=== PATIENT | male | born 1965 | race African-American/Black ===

== ENCOUNTER 2017-01-29 09:40 | Emergency (ER) | payer OTHER ==
--- NOTE | ~2017-01-29 | CR281 ---
[facility] A Service of [facility] & [facility] RADIOLOGY TEXT RESULTS PATIENT: DEVONTE PITT LOCATION: [facility] : 63 UNIT #: [id number] AGE: [address]: Lelia Zhang SEX: M ORDER DR: [id number] [facility] [address] [facility] [address] [address]. [place], [place] [address] [id number] MR#: [id number] Acc #: [id number] NAME: DEVONTE PITT : 1965 SEX: M STUDY DATE/TIME: 01/29/2017 9:55 UNIT: [facility] ROOM: STUDY DESCRIPTION: CR Wrist Min 3 View Lt Attending Physician: Lelia Zhang Pa-C Ordering Physician: Lelia Zhang Pa-C Primary Care Physician: Primary Care Physician No MEDICAL IMAGING REPORT This report is preliminary unless electronic signature is present EXAM Left wrist series dated 01/29/2017. COMPARISON STUDIES None HISTORY Pain, swelling, and redness in the left wrist since 01/28/2017. Patient has a history of gout. FINDINGS 3 views of the left wrist were obtained. No acute displaced fracture, dislocation, bony erosions, spurs or destructive bony mass. There is a 1.5 mm oval calcification/tiny bony fragment noted distal to the medial tip of the distal radius within the nearby soft tissues. It has a chronic appearance and it is an incidental finding. Dictated by... Arleen Sullivan M.D. THIS IS AN ELECTRONICALLY VERIFIED REPORT Arleen Sullivan M.D. at 01/29/2017 3:23 PM CPR/tmw TD: 01/29/2017 11:00 JOB #: [id number] MEDICAL IMAGING REPORT Page 1 of 1 COPY
[~2017-01-29 09:40] MED LIST: ASPIRIN BUFFER325 M2 PO; ASPIRIN PO; COREG6.25 M1 PO; COREG6.25 MG PO; FLEXERIL10 MG PO; LIPITOR40 MG PO; LISINOPRIL PO; NORVASC PO; NORVASC10 MG PO; PROTONIX PO; ZESTRIL40 MG PO
== END 2017-01-29 11:02 | disposition home or self-care (01) ==
LOC: CFTX 09:40
DX: M10.032 Idiopathic gout, left wrist (principal)
CPT/HCPCS: 73110; 96372; 99283; J1885

== ENCOUNTER 2017-03-15 15:28 | Inpatient (IN) | payer OTHER ==
--- NOTE | ~2017-03-15 | CT4 ---
[facility] A Service of [facility] RADIOLOGY TEXT RESULTS PATIENT: DEVONTE PITT LOCATION: [facility] : 63 UNIT #: [id number] AGE: [address]: Darrel Smith MD SEX: M ORDER DR: [id number] [place] [id number] [place], [place] [address] [id number] I MR#: [id number] Acc #: [id number] NAME: DEVONTE PITT : 1965 SEX: M STUDY DATE/TIME: 03/15/2017 19:30 UNIT: [facility] ROOM: 2 STUDY DESCRIPTION: CT Abd and Pelv Wo Cont Attending Physician: Zoe Delgado M.D. Ordering Physician: Physician Non-Staff Primary Care Physician: Generic Doctor Not In System MEDICAL IMAGING REPORT This report is preliminary unless electronic signature is present EXAM CT abdomen and pelvis without contrast INDICATIONS Dizziness and nausea beginning today. PROCEDURE Unenhanced CT abdomen and pelvis. This CT exam was performed with one or more of the following radiation dose reduction techniques: Automatic exposure control, adjustment of mA and/or kV according to patient size, and iterative reconstruction. COMPARISON None FINDINGS Included lung bases clear. Liver, spleen, kidneys, adrenal glands, pancreas, gallbladder unremarkable. Bowel loops are nondilated. Appendix is normal. PELVIS WITHOUT CONTRAST: There is a Mazariegos catheter in the bladder. Bladder wall thickening up to 1.6 cm. No pelvic mass or fluid. No aggressive appearing bone lesion. IMPRESSION 1. No acute findings in the abdomen or pelvis. 2. Bladder is decompressed by a Mazariegos catheter. Bladder wall thickening may be related to underdistention but could also reflect cystitis. Correlate with any symptoms. [facility] A Service [facility] RADIOLOGY TEXT RESULTS PATIENT: DEVONTE PITT LOCATION: [facility] : 63 UNIT #: [id number] AGE: [address]: Darrel Smith MD SEX: M ORDER DR: Dictated by... Felipe Dee M.D. THIS IS AN ELECTRONICALLY VERIFIED REPORT Felipe Dee M.D. at 03/16/2017 9:30 AM EED/viviane TD: 03/15/2017 21:38 JOB #: [id number] MEDICAL IMAGING REPORT Page 1 of 1 COPY
--- NOTE | ~2017-03-15 | DS ---
Unit #: [id number] #: [id number] Patient: DEVONTE PITT [id number] [address] [address] [id number] I MR#: [id number] NAME: DEVONTE PITT ROOM: 57 Age: 51 Sex: M Admission Date: 03/15/2017 : 1965 Discharge Date: 03/17/2017 Attending Physician: Darrel Smith M.D. Primary Care Physician: Generic Doctor Not In System DISCHARGE SUMMARY REASON FOR ADMISSION Acute kidney injury/dizziness. HISTORY OF PRESENT ILLNESS/HOSPITAL COURSE The patient is a very pleasant 51-year-old male who was admitted secondary to acute kidney injury with a creatinine of 5.3 on admission. Apparently, he had been working outside extensively and had difficulty keeping up with his fluid intake. He began having dizziness episodes and subsequently presented to the ER for further evaluation. He was subsequently admitted, placed on telemetry floor. He received IV fluids and consultation was placed to nephrology services. Dr. Mittal and associates saw and evaluated the patient. Through hospital course, it was relatively unremarkable. This morning, his creatinine currently stands at 1.2, likely representing his baseline. He did have decreased potassium as well as decreased magnesium, both have been replenished appropriately. His urinalysis initially was positive; however, final urine culture result did not reveal an acute bacterial growth. He did undergo a bilateral kidney ultrasound this hospital admission which was negative and unremarkable. He also underwent a CT abdomen and pelvis without contrast which again was unremarkable as well. At this point in time, patient is clinically stable for discharge home with appropriate outpatient followup with his primary care provider in approximately 7-10 days for a repeat BMP. FINAL DISCHARGE DIAGNOSES 1. Acute kidney injury. 2. Hypokalemia. 3. Dizziness, now resolved. 4. Coronary artery disease. 5. Hypertension. 6. Chronic systolic heart failure. 7. Hypertension. 8. Gastroesophageal reflux disease. 9. Gout. DISCHARGE MEDICATIONS 1. Coreg 6.25 mg p.o. b.i.d. 2. Norvasc 10 mg p.o. daily. 3. Hydralazine 25 mg p.o. q.8. Unit #: [id number] #: [id number] Patient: DEVONTE PITT. Protonix 40 mg p.o. daily. Please note, NAVJOT/ARB was not initiated although patient has prior history of systolic heart failure secondary to kidney injury. These medications may be resumed as an outpatient after his repeat BMP in approximately 7-10 days shows a normal creatinine level. Hydralazine has been put in its place for now. Further adjustments may be conducted as an outpatient by his primary care provider. Dictated by... Caio Ponce/antoni TD: 03/19/2017 16:35 JOB #: [id number] DISCHARGE SUMMARY Page 1 of 1 X Darrel Smith MD X DISCHARGE SUMMARY
--- NOTE | ~2017-03-15 | EKG ---
PATIENT: DEVONTE PITT UNIT #: [id number] Ventricular Rate: 94 BPM Atrial Rate: 94 BPM P-R Interval: 140 ms QRS Duration: 100 ms Q-T Interval: 386 ms QTC Calculation(Bezet): 482 ms P Wood[place]: 66 degrees Calculated R [place]: -17 degrees Calculated T [place]: -129 degrees Diagnosis Line: Normal sinus rhythm Diagnosis Line: Left ventricular hypertrophy with repolarization Diagnosis Line: abnormality Diagnosis Line: Prolonged QT Diagnosis Line: Abnormal ECG Diagnosis Line: When compared with ECG of 05-NOV-2016 04:37, Diagnosis Line: Premature supraventricular complexes are no longer Diagnosis Line: Present Diagnosis Line: Nonspecific T wave abnormality, worse in Inferior Diagnosis Line: leads Diagnosis Line: Confirmed by PJ PEREZ MD ([id number]) on Diagnosis Line: 03/16/2017 4:02:14 PM INTERPRETING MD: BRITTNY
--- NOTE | ~2017-03-15 | CO ---
Unit #: [id number] #: [id number] Patient: DEVONTE PITT [id number] [address] [place], [place] [address] [id number] I MR#: [id number] NAME: DEVONTE PITT ROOM: 572 Age: 51 Sex: M Admission Date: 03/15/2017 : 1965 Attending Physician: Darrel Smith M.D. Consultation Date: 03/16/2017 CONSULTATION REPORT HISTORY OF PRESENT ILLNESS The patient is a 51-year-old male with known history of hypertension, coronary artery disease, previously stress test in October with ejection fraction 20% and a fixed inferior wall defect without any reversible ischemia. He came in with feeling weak, tired, and fatigued. He was working outside in the sun for several hours. The CK level is less than 200. The creatinine level was noted to be 5.3. The patient also reports vomiting and diarrhea. His home medications include Zestril and ibuprofen. The patient has no previous history of renal problems. The admission blood pressure was 115/68. There is no history of cough, expectoration, chest pain, abdominal pain, hematuria, dysuria. PAST MEDICAL HISTORY Significant for hypertension, coronary artery disease, congestive heart failure with an ejection fraction 25%, GERD, and history of gout. PAST SURGICAL HISTORY Significant for inguinal hernia repair and appendectomy and low back surgery. HOME MEDICATIONS Lisinopril, ibuprofen, allopurinol, Coreg. ALLERGIES No known drug allergies. FAMILY HISTORY Significant for diabetes. No history of end-stage renal disease. SOCIAL HISTORY The patient lives at home. Does not drink or smoke. REVIEW OF SYSTEMS CVS: No chest pain. RESPIRATORY: No cough or expectoration. GI: As above. : No hematuria. No dysuria. PHYSICAL EXAMINATION GENERAL: The patient is awake, alert, and oriented. VITAL SIGNS: Blood pressure is 168/97, heart rate is 98 per minute, saturation is 98%, temperature is 97.7. HEENT: Head is atraumatic. Extraocular movements are intact. NECK: Supple. There is no elevation of the JVD. Unit #: [id number] #: [id number] Patient: DEVONTE PITT CHEST: Clear. Air entry is equal bilaterally. Breathing is vesicular in nature. HEART: S1, S2 audible. There is no S3, no S4. ABDOMEN: Soft. There is no organomegaly. No guarding. No rigidity. No rebound tenderness. EXTREMITIES: There is no edema. SKIN: Intact. SCIENTIFIC SOFTWARE ENGINEER: Motor system is intact. Cerebellar system is intact. IMPRESSION 1. Acute kidney injury likely prerenal azotemia complicated by volume depletion, working out in the sun, and concomitant Zestril and ibuprofen and vomiting, diarrhea. His renal function is improving slowly. His baseline creatinine is 1 to 1.2. We will continue the fluids through the day, but discontinue at night. Possible underlying urinary tract infection, follow urine cultures. 2. Coronary artery disease with inferior wall infarct in the past. 3. History of congestive heart failure with an ejection fraction of 20%. 4. Follow urine cultures. 5. Check renal ultrasound, quantitate proteinuria. 6. Hypokalemia, supplement and follow levels. 7. Hypertension. 8. Mild non-anion gap metabolic acidosis secondary to diarrhea and acute kidney injury. Dictated by... Luke Delgado M.D. RA/chris TD: 03/18/2017 03:30 JOB #: [id number] CONSULTATION REPORT Page 1 of 1 X Luke Delgado MD CONSULTATION REPORT
--- NOTE | ~2017-03-15 | HP ---
Unit #: [id number] #: [id number] Patient: DEVONTE PITT [id number] [address] [address] [id number] I MR#: [id number] NAME: DEVONTE PITT ROOM: 92069 Age: 51 Sex: M Admission Date: 03/15/2017 : 1965 Attending Physician: Betty Delgado M.D. Primary Care Physician: Generic Doctor Not In System HISTORY AND PHYSICAL CHIEF COMPLAINT Dizziness. HISTORY OF PRESENT ILLNESS The patient is a 51-year-old male with a history of a coronary artery disease, hypertension, chronic systolic heart failure, brought to the emergency room complaining of dizziness. The patient stated dizziness started earlier today. He was working in the heat and associated with the nausea. The patient was found to have a creatinine of 5.3 and potassium of 2.3. The patient is being admitted for the above reasons. The patient states the patient has not peed in the last 24 hours and denies any fever, chills, nausea and vomiting or any new medications. PAST MEDICAL HISTORY 1. History of a chronic systolic heart failure. 2. Coronary artery disease. 3. Hypertension. 4. Gastroesophageal reflux disease. 5. Gout. PAST SURGICAL HISTORY 1. Low back surgery. 2. Appendectomy. 3. History of a right inguinal hernia repair. HOME MEDICATIONS Lisinopril, allopurinol, Coreg. ALLERGIES None. FAMILY HISTORY Significant for diabetes. SOCIAL HISTORY The patient denies any history of smoking and no history of alcohol and no history of any illicit drug abuse. REVIEW OF SYMPTOMS Fourteen-point review of symptoms performed and only pertinent positive findings as described above, remaining are negative. PHYSICAL EXAMINATION Unit #: [id number] #: [id number] Patient: DEVONTE PITT GENERAL APPEARANCE: On examination the patient is lying on a bed not in acute distress. VITAL SIGNS: Temperature is 97.5, pulse 90, respiratory rate 17, blood pressure 115/68, sating 98% at room air. HEENT: Head atraumatic/normocephalic. Pupils equal, round and reacting to light and accommodation. Extraocular movements are intact. NECK: Supple. LUNGS: Decreased air entry at the bases. HEART: Regular rate and rhythm. ABDOMEN: Soft, positive bowel sounds. EXTREMITIES: No cyanosis. No clubbing. NEUROLOGIC: Awake, alert and oriented. No gross focal motor deficit. DIAGNOSTIC STUDIES LABORATORY DATA: WBC 6.5, hemoglobin 16.6, hematocrit 49.6, platelets 264, glucose is 99, sodium 135, potassium 2.3, chloride 96, bicarb 24, glucose 98, BUN 30, creatinine 5.3, AST 733, ALT 28, alkaline phosphatase 95, total protein is 9. ASSESSMENT 1. Acute kidney injury. 2. Hypokalemia. 3. Anuria. 4. Dizziness. PLAN Plan to admit the patient to the inpatient with the telemetry. Patient will get the gentle IV fluid with the normal saline at 100 mL per hour for a liter and will check the CT of the abdomen without contrast to rule out the obstruction with a history of anuria and will have a Renal consult and hold the nephrotoxic agents and repeat the labs again in the morning. Dictated by Caio Bansal/nivia TD: 03/15/2017 19:02 JOB #: [id number] HISTORY AND PHYSICAL Page 1 of 1 X BETTY DELGADO MD HISTORY AND PHYSICAL
--- NOTE | ~2017-03-15 | US77 ---
[facility] A Service of [facility] & [facility] RADIOLOGY TEXT RESULTS PATIENT: DEVONTE PITT LOCATION: [facility] 572-01 : 63 UNIT #: [id number] AGE: [address]: Darrel Smith MD SEX: M ORDER DR: [id number] [facility] [address] [facility]. [place], [place] [address] [id number] I MR#: [id number] #: [id number] NAME: DEVONTE PITT : 1965 SEX: M STUDY DATE/TIME: 03/16/2017 17:17 UNIT: [facility] ROOM: [facility] STUDY DESCRIPTION: US Kidney Bilateral Complete Attending Physician: Darrel Smith M.D. Referring Physician: Adonis Soolrio M.D. Ordering Physician: Ed Terrell Hall M.D. Primary Care Physician: Generic Doctor Not In System MEDICAL IMAGING REPORT This report is preliminary unless electronic signature is present EXAM Renal ultrasound bilateral, 03/16/17. HISTORY Acute renal insufficiency with dehydration beginning yesterday, abnormal renal function tests with elevated BUN of 30, elevated creatinine of 2.3. Abnormally low GFR of 36.2 today. FINDINGS The right kidney measures 13 cm while the left kidney measures 11.9 cm in longitudinal dimensions. There is no evidence of hydronephrosis or nephrolithiasis. No cystic or solid mass lesions were seen on either kidney, and there is normal renal cortical echogenicity. Images of the bladder are normal. IMPRESSION 1. Negative renal ultrasound. 2. Images of the bladder are normal. Dictated by... Tony Hargrove M.D. THIS IS AN ELECTRONICALLY VERIFIED REPORT Tony Hargrove M.D. at 03/19/2017 8:26 AM GUERLINE/louann TD: 03/16/2017 22:45 JOB #: [id number] MEDICAL IMAGING REPORT Page 1 of 1 COPY
[2017-03-15 16:21] LABS: BASOPHIL# 0.1 X10e3 (0-0.3); BASOPHIL% 0.9 % (0-2.5); EOSINOPHIL# 0.3 X10e3 (0-0.7); EOSINOPHIL% 4.7 % (0.0-7.0); HEMATOCRIT 49.6 % (38.0-50.0); HEMOGLOBIN 16.6 gm/dL (13.0-16.0); LYMPHOCYTE# 1.5 X10e3 (1.0-3.5); MEAN CELL VOLUME 91.7 FL (83-96); MEAN CORPUSCULAR HEMOGLOBIN 30.8 PG (28-34); MEAN CORPUSCULAR HGB CONC 33.5 g/dL (30-36); MEAN PLATELET VOLUME 7.7 FL (6.5-11.5); MONOCYTE# 0.7 X10e3 (0-1.0); MONOCYTE% 10.6 % (3.0-12.0); NEUTROPHIL# 3.9 X10e3 (1.5-7.1); NEUTROPHIL% 60.8 % (40-75); PLATELET COUNT 264 X10e3 (140-420); RED BLOOD COUNT 5.41 X10e (3.90-5.60); RED CELL DISTRIBUTION WIDTH 14.9 % (11.0-15.5); WHITE BLOOD COUNT 6.5 X10e3 (4.0-10.5)
[2017-03-15 16:22] LABS: DIFF IND NO
[2017-03-15 16:46] LABS: ALBUMIN SERUM 4.2 g/dL (3.5-5.0); BILIRUBIN, DIRECT 0.2 mg/dL (0.0-0.2); BILIRUBIN,INDIRECT 0.6 mg/dL (0.0-0.9); BILIRUBIN,TOTAL 0.8 mg/dL (0.2-2.0); BUN/CREATININE RATIO 5.66; CALCIUM SERUM 8.5 mg/dL (8.4-10.2); CREATININE SERUM 5.3 mg/dL (0.6-1.4); GLOM FILT RATE Estimated 13.2 mL/min (>60)
[2017-03-15 16:48] LABS: POTASSIUM 2.3 mmol/L (3.5-5.1)
[2017-03-15 19:20] LABS: URINE SOURCE CLEAN CATCH
[2017-03-15 19:37] LABS: URINE APPEARANCE CLOUDY; URINE BLOOD 1+ (NEG); URINE COLOR DK YELLOW; URINE GLUCOSE NEG (NEG); URINE KETONE TRACE (NEG); URINE LEUKOCYTE ESTERASE TRACE (NEG); URINE NITRATE NEG (NEG); URINE PROTEIN 2+ (NEG); URINE SPECIFIC GRAVITY 1.023 (1.003-1.035)
[2017-03-15 19:41] LABS: CULTURE INDICATED? YES; URINE SQUAMOUS EPITHELIAL CELL FEW /[HPF]
[2017-03-15 19:53] LABS: URINE BILIRUBIN NEG (NEG)
[2017-03-15 19:56] LABS: U HYALINE CASTS AUWI 25-50 /[LPF]
[2017-03-15 19:57] LABS: URINE BACTERIA AUWI 2+ (NEGATIVE); URINE MUCUS PRESENT
[2017-03-15] MEDS ORDERED: ZESTRIL40 MG (23:14)
[2017-03-15] MEDS ORDERED: COREG6.25 M1 PO (23:15)
[2017-03-15] MEDS ORDERED: PANTOPRAZOLE SO40 MG PO (23:16)
[2017-03-15] MEDS ORDERED: NORVASC10 MG PO (23:17)
[2017-03-16 05:04] LABS: BASOPHIL# 0.1 X10e3 (0-0.3); BASOPHIL% 0.7 % (0-2.5); EOSINOPHIL# 0.4 X10e3 (0-0.7); EOSINOPHIL% 5.7 % (0.0-7.0); HEMATOCRIT 43.2 % (38.0-50.0); LYMPHOCYTE# 2.5 X10e3 (1.0-3.5); LYMPHOCYTE% 36.5 % (17.0-45.0); MEAN CELL VOLUME 92.8 FL (83-96); MEAN CORPUSCULAR HEMOGLOBIN 31.1 PG (28-34); MEAN CORPUSCULAR HGB CONC 33.5 g/dL (30-36); MEAN PLATELET VOLUME 7.9 FL (6.5-11.5); MONOCYTE# 0.9 X10e3 (0-1.0); MONOCYTE% 12.6 % (3.0-12.0); NEUTROPHIL% 44.5 % (40-75); PLATELET COUNT 218 X10e3 (140-420); RED BLOOD COUNT 4.65 X10e (3.90-5.60); WHITE BLOOD COUNT 6.8 X10e3 (4.0-10.5)
[2017-03-16 05:14] LABS: DIFF IND NO; HEMOGLOBIN 14.4 gm/dL (13.0-16.0)
[2017-03-16 06:19] LABS: CALCIUM SERUM 8.3 mg/dL (8.4-10.2)
[2017-03-16 06:25] LABS: BUN/CREATININE RATIO 13.04; CREATININE SERUM 2.3 mg/dL (0.6-1.4); GLOM FILT RATE Estimated 36.2 mL/min (>60); POTASSIUM 2.6 mmol/L (3.5-5.1)
[2017-03-16 18:04] LABS: URINE APPEARANCE CLEAR; URINE BILIRUBIN NEG (NEG); URINE BLOOD 2+ (NEG); URINE COLOR YELLOW; URINE GLUCOSE NEG (NEG); URINE KETONE NEG (NEG); URINE LEUKOCYTE ESTERASE TRACE (NEG); URINE NITRATE NEG (NEG); URINE PH 5.5 (5-8); URINE PROTEIN NEG (NEG); URINE SPECIFIC GRAVITY 1.014 (1.003-1.035)
[2017-03-16 18:11] LABS: URBCS1 AUWI 25-50 /[HPF] (0-2); URINE BACTERIA AUWI 1+ (NEGATIVE); URINE SQUAMOUS EPITHELIAL CELL NONE SEEN /[HPF]
[2017-03-16 18:12] LABS: CREATININE,RANDOM URINE 61 mg/dL; SODIUM URINE RANDOM 155 mmol/L; TOTAL PROTEIN,RANDOM URINE 16 mg/dl (<10)
[2017-03-17 06:32] LABS: BUN/CREATININE RATIO 12.5; CALCIUM SERUM 8.4 mg/dL (8.4-10.2); CREATININE SERUM 1.2 mg/dL (0.6-1.4); GLOM FILT RATE Estimated 79.6 mL/min (>60); MAGNESIUM 1.5 mg/dL (1.6-3.0); POTASSIUM 3.3 mmol/L (3.5-5.1)
[2017-03-17] MEDS ORDERED: HYDRALAZINE HCL25 MG PO (12:52)
== END 2017-03-17 13:52 | disposition home or self-care (01) | DRG 683 ==
LOC: CED 15:28 → CEDOF 18:00 → C5C 18:05 → CEDOF 18:05 → CED 18:05 → CEDOF 20:42 → C5C 20:42
PROVIDERS: Emergency Medicine; Family Medicine; Internal Medicine; Internal Medicine Nephrology
DX: N17.9 Acute kidney failure, unspecified (principal); I50.22 Chronic systolic (congestive) heart failure; I11.0 Hypertensive heart disease with heart failure; E87.2 Acidosis; E87.6 Hypokalemia; E86.0 Dehydration; R42 Dizziness and giddiness; I25.10 Atherosclerotic heart disease of native coronary artery without angina pectoris; K21.9 Gastro-esophageal reflux disease without esophagitis; M10.9 Gout, unspecified; Z83.3 Family history of diabetes mellitus; R19.7 Diarrhea, unspecified; Z90.49 Acquired absence of other specified parts of digestive tract
CPT/HCPCS: 36415; 74176; 76770; 80048; 80076; 81003; 82550; 82570; 82947; 83735; 84132; 84156; 84300; 85025; 87086; 89190; 93005; 94760; 96360; 99285; J3475

== ENCOUNTER 2017-04-17 01:23 | Inpatient (IN) | payer OTHER ==
[~2017-04-17] VITALS: Ht 185.4 cm; Wt 81.2 kg
--- NOTE | ~2017-04-17 | CO ---
Unit #: [id number] #: [id number] Patient: DEVONTE PITT [id number] [facility] [address] [facility]. [place], [place] [address] [id number] I MR#: [id number] NAME: DEVONTE PITT ROOM: 304 Age: 51 Sex: M Admission Date: 04/17/2017 : 1965 Attending Physician: Vipin Taylor M.D. Primary Care Physician: Andrei Pinto M.D. Consultation Date: 04/18/2017 CONSULTATION REPORT REASON FOR CONSULTATION Elevated troponin. HISTORY OF PRESENT ILLNESS The patient is a 51-year-old -[place] male who is known o [facility] and has seen Dr. Chen here at [facility]. In October 2016, the patient had a cardiac catheterization which showed 60% stenosis in the mid LAD, 60% stenosis in the mid left circumflex and RCA small RV branch at the ostium 90% stenosis. This was not suitable for PCI and it was decided to treat the patient medically. Also at that time, in October 2016, the patient had a 2D echocardiogram which showed that he has an EF of 20% to 25%, severe hypokinesis of the left ventricle, mild to moderate LVH, pseudonormalization with possible small protruding thrombus attached at the LV apex. Additional past medical history includes chronic systolic and diastolic CHF, hypertension, hyperlipidemia, GERD and gout. The patient presented to the emergency department on April 17, 2017. The patient states he was in his usual state of health and that day had eaten [place] and then gone to the horse racing track in [place]. As he was leaving the track, he started to feel slightly nauseated. The patient reports that once he got home he just "felt sick" and laid down. The patient woke up with nausea, vomiting, and bilateral arm heaviness and weakness. He denied any chest pain or shortness of air. He states he did have some dizziness and mild diaphoresis. He states that he was unable to move his arms. In the emergency department, MRI of the cervical spine was completed but was limited by motion artifact. Urinalysis had findings concerning for urinary tract infection. He was treated with 1 g of IV Rocephin and magnesium and potassium. The patient's urine drug screen was found to be positive for marijuana and cocaine. When I asked the patient about this he adamantly denied using any illicit drugs. The patient's EKG showed sinus tachycardia with a rate of 114 beats/minute and his troponin was found to be 0.05. Cardiology has been consulted for troponin of 0.05 x2 and now 0.06. PAST MEDICAL HISTORY 1. Cardiac catheterization October 2016, showed left main normal. Mid LAD 60% stenosis. Mid left circumflex 60% stenosis and RCA small RV branch at the ostium 90% stenosis. RPDA diffuse 90% stenosis, not suitable for PCI. Will treat medically. 2. 2D echocardiogram from October 16, 2016. EF 20% to 25%, severe hypokinesis of the left ventricle. Mild to moderate LVH. Unit #: [id number] #: [id number] Patient: DEVONTE PITT Pseudonormalization and possible small protruding thrombus attached to the left apex. 3. Hypertension. 4. Hyperlipidemia. 5. GERD. 6. Gout. 7. Chronic systolic and diastolic CHF. 8. Positive marijuana and cocaine use. PAST SURGICAL HISTORY 1. Cardiac catheterization as detailed above. 2. Back surgery. 3. Appendectomy. ALLERGIES No known allergies. HOME MEDICATIONS 1. Coreg 6.25 mg p.o. b.i.d. 2. Protonix 40 mg p.o. daily. 3. Norvasc 10 mg p.o. daily. 4. Hydralazine 25 mg p.o. three times daily. SOCIAL HISTORY The patient denies any tobacco or alcohol use. The patient denies using marijuana and cocaine; however, his urinalysis was positive for this. FAMILY HISTORY The patient endorses that his mother passed of a myocardial infarction at the age of 56 and his brother recently at the age of 54 from a myocardial infarction. Please note that per the H and P, patient's mother had congestive heart failure and hypertension. REVIEW OF SYSTEMS A ten point review of systems has been done and is considered otherwise negative unless indicated in the HPI. PHYSICAL EXAMINATION GENERAL: The patient is awake, alert, in no acute distress. VITAL SIGNS: Temperature 98.1, heart rate 113, respirations 24, blood pressure 139/98. He is oxygenating 97%. HEENT: Head is atraumatic, normocephalic. Pupils are equal, round and reactive. Extraocular movements are intact. No drainage from ears or nares. Normal carotid upstrokes. No thyromegaly or lymphadenopathy is appreciated. CHEST: Lungs are clear to auscultation bilaterally. No wheezes, rales or rhonchi. CARDIOVASCULAR: S1, S2. Regular rate and rhythm. No murmurs, rubs or gallops appreciated. ABDOMEN: Soft, nontender, nondistended. Bowel sounds are positive in all four quadrants. SKIN: Appears to be warm, dry and intact without any unusual rashes or lesions. EXTREMITIES: No clubbing, edema or cyanosis. NEUROLOGIC: The patient is alert and oriented x4. He is pleasant and conversant. No focal defects. Cranial nerves II-XII appear to be intact. DIAGNOSTIC STUDIES Unit #: [id number] #: [id number] Patient: DEVONTE PITT LABORATORY: Troponin 0.05 x2, now 0.06. White blood cells 9.6, hemoglobin 14.7, hematocrit 44.2, platelets 224. Sodium 135, potassium 3.6, chloride 102, CO2 23, BUN 9, creatinine 1. Urine drug screen is positive for cocaine and marijuana. Urinalysis is positive with culture pending. Blood cultures are pending. CARDIOVASCULAR: EKG shows sinus tachycardia with a rate of 114 beats/minute. IMAGING: CT scan of the chest shows no active disease, mild cardiomegaly. MRI of the cervical spine was limited by motion artifact. Degenerative changes at multiple levels of the cervical spine, particularly C3-4, C5-6 and C6-7 with likely canal stenosis and cord displacement, particularly at C3-[address] scan of the head shows remote appearing lacunar infarct, left caudate head which is new since prior study of March of 2011. Extensive mucosal thickening throughout the paranasal sinuses. ASSESSMENT 1. Indeterminate troponin. 2. Bilateral arm weakness, pain, myalgias. 3. Coronary artery disease, status post cath in 2016 with three vessel disease. 4. Ejection fraction of 20% to 25% in October 2016. 5. Chronic systolic and diastolic congestive heart failure. 6. Urinary tract infection with culture pending. 7. Likely chronic lacunar infarct. 8. Positive cocaine and marijuana use. PLAN At this time, we will check a lipid panel, TSH, BMP and mag in the morning. Will ask nursing to place 2D echocardiogram report on chart from October 2016. The patient will be started on Entresto 24/26 mg p.o. b.i.d. and hydralazine will be discontinued. Norvasc will be decreased to 5 mg p.o. daily. The patient will also be started on Lasix 20 mg p.o. daily and spironolactone 12.5 mg p.o. daily. Parameters for the patient's Coreg will be added and will be held if his heart rate is less than 60 or systolic blood pressure is less than 100. Repeat EKG will be done in the a.m. and blood cultures x2 15 minutes apart will be obtained. Further recommendations will be per Dr. Lynn. Please see the chart for that. Dictated by... Debbie Diamond A.P.R.N. for Dar Lynn M.D. LA/bel TD: 04/19/2017 06:47 JOB #: [id number] Unit #: [id number] #: [id number] Patient: DEVONTE PITT CONSULTATION REPORT Page 1 of 1 X Debbie Diamond LEAD RIDER X CONSULTATION REPORT
--- NOTE | ~2017-04-17 | CR72 ---
[facility] A Service of [facility] & [facility] RADIOLOGY TEXT RESULTS PATIENT: DEVONTE PITT LOCATION: [facility] 304-01 : 63 UNIT #: [id number] AGE: [address]: Elva Johns MD SEX: M ORDER DR: [id number] [facility] [address] [facility]. [place], [place] [address] [id number] E MR#: [id number] Acc #: [id number] NAME: DEVONTE PITT : 1965 SEX: M STUDY DATE/TIME: 04/17/2017 4:05 UNIT: [facility] ROOM: STUDY DESCRIPTION: CR Chest Single View Portable Attending Physician: Louie Nieves M.D. Ordering Physician: Terry Mukherjee D.O. Primary Care Physician: Andrei Pinto M.D. MEDICAL IMAGING REPORT This report is preliminary unless electronic signature is present EXAM Portable chest INDICATIONS Shortness of air tonight. PROCEDURE Frontal view chest. COMPARISON STUDIES 11/05/2016 FINDINGS Mild cardiomegaly. No dense consolidation, pleural fluid or pneumothorax. IMPRESSION No active process. Mild cardiomegaly Dictated by... Felipe Dee M.D. THIS IS AN ELECTRONICALLY VERIFIED REPORT Felipe Dee M.D. at 04/17/2017 9:51 PM KAREN/suze TD: 04/17/2017 13:47 JOB #: [id number] MEDICAL IMAGING REPORT Page 1 of 1 COPY
--- NOTE | ~2017-04-17 | MR122 ---
[facility] A Service of [facility] & [facility] RADIOLOGY TEXT RESULTS PATIENT: DEVONTE PITT LOCATION: [facility] 304-01 : 63 UNIT #: [id number] AGE: [address]: PRANEETH JACKSON V SEX: M ORDER DR: [id number] [facility] [address] [place], [place] [address] [id number] I MR#: [id number] Acc #: [id number] NAME: DEVONTE PITT : 1965 SEX: M STUDY DATE/TIME: 04/19/2017 22:17 UNIT: C3A PCU ROOM: 304 STUDY DESCRIPTION: MR MRA Head Wo Contrast Attending Physician: Praneeth Jackson M.D. Ordering Physician: Mark Jennings M.D. Primary Care Physician: Andrei Pinto M.D. MRI CENTER REPORT This report is preliminary unless electronic signature is present. EXAM MR angiogram [place] HISTORY 51-year-old male with history of alcohol use, drug abuse, and hypertension presents unable to move arms and shoulders, upper arm weakness for 4 days. Tingling and numbness in both hands for several months. No cancer history. COMMENT MR angiography performed [place] vasculature. The comparison study is from 04/19/2017. There is an attenuated appearance to the right posterior cerebral artery distribution when compared to the left. This is of uncertain significance clinically since there is no infarct in this distribution on the diffusion series. There are relatively large bilateral posterior communicators which supply origin to the posterior cerebral artery distribution. The basilar is of relatively smaller caliber supplied by a right vertebral artery. The left vertebral artery largely terminates in a PICA vessel. Patient has an anterior dominant circulation. Mild fullness of the tip of the basilar to about 3 mm essentially a small saccular aneurysm from which the vessels arise. This should be followed in about 1 year with a followup MR angiogram. No other possible intracranial vascular cutoff is seen. No significant sized anterior communicator is identified. The vessels are irregular in general and this could be a manifestation of intracranial atherosclerotic disease. The patient does have a history of cocaine use and its possible this is related to the patient's drug abuse history. Certainly a combination of etiologies could be present. No high-grade central stenosis is appreciated. Preliminary voice clip provide overnight by Dr. Dee. IMPRESSION 1. There is a relatively diminished size to the right posterior cerebral STS. [facility] A Service of [facility] & [facility] RADIOLOGY TEXT RESULTS PATIENT: DEVONTE PITT LOCATION: [facility] 304-01 : 61 UNIT #: [id number] AGE: [address]: PRANEETH JACKSON V SEX: M ORDER DR: artery distribution. This is of uncertain further clinical significance since there is no evidence for ischemic insult in this distribution. Otherwise there is no suspicion for a intracranial vascular cutoff. 2. Anterior dominant circulation with origin to the bilateral posterior cerebral artery distributions. 3. Irregular appearance to the vasculature in general. This could be a manifestation of intracranial atherosclerotic disease. The patient also provides a history of cocaine use and it could be related to drug abuse as well. There is no high-grade central stenosis appreciated. 4. There is a 3 mm focus of essentially saccular dilatation of the tip of the basilar from which the vessels arise. This is most consistent with a small aneurysm. I would recommend a followup MR angiogram in a year to reassess. STAT * RESULT Dictated by... Radha Serrano M.D. THIS IS AN ELECTRONICALLY VERIFIED REPORT Radha Serrano M.D. at 04/20/2017 9:31 AM GRICEL/abdulaziz TD: 04/20/2017 07:45 JOB #: [id number] MRI CENTER REPORT Page 1 of 1 COPY
--- NOTE | ~2017-04-17 | EKG ---
PATIENT: DEVONTE PITT UNIT #: [id number] Ventricular Rate: 91 BPM Atrial Rate: 91 BPM P-R Interval: 156 ms QRS Duration: 96 ms Q-T Interval: 444 ms QTC Calculation(Bezet): 546 ms P Min[place]: 68 degrees Calculated R [place]: -15 degrees Calculated T [place]: 10 degrees Diagnosis Line: Normal sinus rhythm Diagnosis Line: Left ventricular hypertrophy with repolarization Diagnosis Line: abnormality Diagnosis Line: Prolonged QT Diagnosis Line: Abnormal ECG Diagnosis Line: When compared with ECG of 18-APR-2017 15:51, Diagnosis Line: (unconfirmed) Diagnosis Line: Nonspecific T wave abnormality now evident in Diagnosis Line: Lateral leads Diagnosis Line: Confirmed by RISSA IBANEZ MD ([id number]) on 04/19/2017 Diagnosis Line: 7:58:50 PM INTERPRETING MD: SHAMAR POLO
--- NOTE | ~2017-04-17 | DS ---
Unit #: [id number] #: [id number] Patient: DEVONTE PITT [id number] [address] [address] [id number] I MR#: [id number] NAME: DEVONTE PITT ROOM: 304 Age: 51 Sex: M Admission Date: 04/17/2017 : 1965 Discharge Date: 04/20/2017 Attending Physician: Vipin Taylor Primary Care Physician: Andrei Pinto M.D. DISCHARGE SUMMARY PERTINENT HISTORY AND CLINICAL COURSE The patient is a 51-year-old man with a history significant for coronary artery disease, congestive heart failure, cardiomyopathy, gout, and GERD who presented to the hospital with symptoms of pain and weakness over both of his upper extremities along with swelling over both of his shoulders. During this admission, the patient had an echocardiogram that demonstrated an ejection fraction of 20 to 30%. Cardiology was consulted. The patient was started on Entresto as well as Lasix and spironolactone. Also during his admission, the patient was noted to have white cells in his urine. The patient was treated with antibiotic Rocephin. Also during his admission, the patient had a CAT scan of his brain that demonstrated an old small left caudate head lacunar infarct with non-sequelae of chronic small vessel disease. This patient was started on Lipitor 40 mg daily and Neurology was consulted. Also during his admission, the patient was noted to have an elevated ESR. Dictated by... Vipin Taylor for Caio Faria TD: 04/23/2017 02:10 JOB #: [id number] DISCHARGE SUMMARY Page 1 of 1 X X DISCHARGE SUMMARY
--- NOTE | ~2017-04-17 | MR134 ---
[facility] A Service of [facility] & [facility] RADIOLOGY TEXT RESULTS PATIENT: DEVONTE PITT LOCATION: [facility] 304-01 : 61 UNIT #: [id number] AGE: [address]: PRANEETH JACKSON V SEX: M ORDER DR: [id number] [facility] [address] [place], [place] [address] [id number] I MR#: [id number] Acc #: [id number] NAME: DEVONTE PITT : 1965 SEX: M STUDY DATE/TIME: 04/19/2017 22:17 UNIT: C3A PCU ROOM: 304 STUDY DESCRIPTION: MR MRA Neck Wo Contrast Attending Physician: Praneeth Jackson M.D. Ordering Physician: Mark Jennings M.D. Primary Care Physician: Andrei Pinto M.D. MRI CENTER REPORT This report is preliminary unless electronic signature is present. EXAM MR angiogram neck without HISTORY Weakness and pain. Four days of bilateral upper arm weakness. 51-year-old patient who has a history of hypertension, drug abuse and alcohol use. Preliminary wet reading provided overnight by Dr. Dee. COMMENT MR angiography performed neck vessels without contrast centered at the level of the carotid bifurcations. Some mild motion limitation noted. By NASCET criteria, no hemodynamically-significant narrowing is seen at the left carotid bifurcation. By NASCET criteria, no hemodynamically-significant narrowing is seen at the right carotid bifurcation. There is a dominant right vertebral artery. It is grossly patent but I cannot evaluate for areas of stenosis because of the motion. The left vertebral artery is not well seen. It could be hypoplastic or diseased or have essentially very slow flow or occlusion. Appearance is concerning for occlusion. There is a tiny vessel intracranially supplying the PICA which could be reconstituted from the neck collaterals. IMPRESSION By NASCET criteria, there is no hemodynamically-significant narrowing at either carotid bifurcation. The right vertebral artery is patent and supplies the basilar. I suspect the left vertebral artery is either occluded or has very slow flow. It is simply not seen in the neck. There is a tiny distal left vertebral artery which appears to supply the PICA intracranially and I would suspect this is reconstituted from neck collaterals. [facility] A Service of [facility] & [facility] RADIOLOGY TEXT RESULTS PATIENT: DEVONTE PITT LOCATION: C3[facility] 304-01 : 61 UNIT #: [id number] AGE: [address]: PRANEETH JACKSON V SEX: M ORDER DR: STAT * RESULT Dictated by... Radha Serrano M.D. THIS IS AN ELECTRONICALLY VERIFIED REPORT Radha Serrano M.D. at 04/20/2017 9:31 AM Mehran TD: 04/20/2017 07:52 JOB #: [id number] MRI CENTER REPORT Page 1 of 1 COPY
--- NOTE | ~2017-04-17 | EKG ---
PATIENT: DEVONTE PITT UNIT #: [id number] Ventricular Rate: 100 BPM Atrial Rate: 100 BPM P-R Interval: 142 ms QRS Duration: 102 ms Q-T Interval: 398 ms QTC Calculation(Bezet): 513 ms P [place]: 68 degrees Calculated R [place]: -21 degrees Calculated T Jen[place]: 0 degrees Diagnosis Line: Normal sinus rhythm Diagnosis Line: Voltage criteria for left ventricular hypertrophy Diagnosis Line: Prolonged QT Diagnosis Line: Abnormal ECG Diagnosis Line: When compared with ECG of 17-APR-2017 01:31, Diagnosis Line: ST no longer depressed in Inferior leads Diagnosis Line: Nonspecific T wave abnormality no longer evident Diagnosis Line: in Lateral leads Diagnosis Line: Confirmed by PAULINE HARPER MD ([id number]) on Diagnosis Line: 04/20/2017 7:29:10 AM INTERPRETING MD: LEROY POLO
--- NOTE | ~2017-04-17 | DS ---
Unit #: [id number] #: [id number] Patient: DEVONTE PITT [id number] [address] [place], [place] [address] [id number] I MR#: [id number] NAME: DEVONTE PITT ROOM: 304 Age: 51 Sex: M Admission Date: 04/17/2017 : 1965 Discharge Date: 04/20/2017 Attending Physician: Vipin Taylor Primary Care Physician: Andrei Pinto M.D. DISCHARGE SUMMARY ADDENDUM PERTINENT HISTORY AND HOSPITAL COURSE The patient is a 51-year-old man with past medical history significant for coronary artery disease, congestive heart failure, hypertension, gout, and GERD. He presented to the emergency room with symptoms of weakness, swelling, and pain over both of his bilateral upper extremities, more over bilateral shoulders, right greater than left. During his admission, the patient was evaluated by Neurology for his weakness. The patient has a CAT scan of his head demonstrated an old remote left caudate lacunar infarct with chronic small vessel ischemic changes. During his admission, the patient was started on statin and continued on aspirin. Also during his admission, the patient had an echocardiogram that demonstrated an ejection fraction of 20% to 30%. The patient was evaluated by Cardiology consultation. He was started on Entresto, and Lasix and spironolactone were also added to his medications. Also during his admission, the patient demonstrated white cells in his urine. He was treated for urinary tract infection with Rocephin. During his admission, his ESR and CRP were noted to be elevated. He had an MRI of his right shoulder that demonstrated mild to moderate supraspinatus and infraspinatus tendinopathy, no evidence of rotator cuff tear. The patient was treated with glucocorticoids for tendonitis and myositis. Following which, his bilateral shoulder pain and swelling resolved. The patient is to be discharged home today. His vitals were stable. He is breathing comfortably. His shoulder swelling and tenderness have resolved. His range of motion of his upper extremities have improved. DISCHARGE MEDICATIONS Coreg 6.25 mg p.o. q.12 hourly, amlodipine 5 mg p.o. daily, furosemide 40 mg p.o. daily, Lipitor 40 mg p.o. at bedtime, Protonix 40 mg daily, aspirin 325 mg p.o. daily, spironolactone 25 mg p.o. daily, prednisone 20 mg p.o. daily for 5 days, magnesium oxide 400 mg p.o. b.i.d. for 3 days, K-Dur 10 mEq p.o. daily for 3 days. 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 DISCHARGE INSTRUCTIONS Follow up with primary care physician. Follow up with Cardiology, . Unit #: [id number] #: [id number] Patient: DUNCAN PITTKAREN Lynn. Lab test ordered as outpatient, BMP and mag. Lab test fax to Dr. Lynn' office in 1 week. Dictated by... Vipin More for Aristeo Diamond M.D. AM/chris TD: 04/23/2017 02:30 JOB #: [id number] DISCHARGE SUMMARY Page 1 of 1 X X DISCHARGE SUMMARY
--- NOTE | ~2017-04-17 | MR31 ---
[facility] A Service of [facility] & [facility] RADIOLOGY TEXT RESULTS PATIENT: DEVONTE PITT LOCATION: C3A 304-01 : 63 UNIT #: [id number] AGE: [address]: PRANEETH JACKSON V SEX: M ORDER DR: [id number] [facility] [address] [place], [place] [address] [id number] I MR#: [id number] Acc #: [id number] NAME: DEVONTE PITT : 1965 SEX: M STUDY DATE/TIME: 04/19/2017 22:17 UNIT: C3A [facility] ROOM: 304 STUDY DESCRIPTION: MR Cervical WWo Contrast Attending Physician: Praneeth Jackson M.D. Ordering Physician: Mark Jennings M.D. Primary Care Physician: Andrei Pinto M.D. MRI CENTER REPORT This report is preliminary unless electronic signature is present. EXAM Cervical spine MRI with and without. HISTORY Four days of bilateral upper arm weakness. Tingling and numbness in both hands for several months. Unable to raise right shoulder sideways for 4 days. No known injury. No history of surgery or cancer of spine. Patient has a history of drug abuse. FINDINGS MRI of the cervical spine was performed prior to and following intravenous administration of 15 mL of MultiHance. There is no prior study of the cervical spine. There is preliminary wet reading provided by Dr. Dee. Study is unfortunately motion limited. Sagittal alignment is normal. Intervertebral discs are desiccated in general with multiple level loss of intervertebral disc height. This is pdjq-ti-htknuykw and most apparent at C3-4, C5-6, C6-7. Endplate spondylosis also most apparent at C3-4 and, to a lesser extent, 5-6 and 6-7 levels. The cervical cord is normal in size. There is a tiny linear focus of high-signal intensity seen on sagittal T2 and STIR imaging at the level of C4-5. Given the amount of motion, it is not reproduced on the axial imaging. It is probably real and this could be a tiny prominent central canal (essentially a normal variant). It is not associated with mass effect or enhancement and no further assessment is needed of this lesion at this time. It is conceivable it is a tiny manifestation of prior cord contusion. Otherwise cord signal intensity is essentially within normal limits allowing for the motion. No Chiari-I malformation or pathologic cord enhancement. At C2-3, there is no significant abnormality. [facility] A Service of [facility] RADIOLOGY TEXT RESULTS PATIENT: DEVONTE PITT LOCATION: C3A PC 304-01 : 61 UNIT #: [id number] AGE: [address]: PRANEETH JACKSON V SEX: M ORDER DR: At C3-4, there is mild bilateral facet degenerative change concentric moderate disc osteophyte complex with uncovertebral osteophyte formation. There is a broad posterior protrusion/extrusion, which extends above and below the level of disc, but remains contiguous with disc, more prominent centrally. It results in mild cord flattening and canal stenosis, but there is still CSF posterior to the cord and this does not result in cord signal abnormality. Probably fairly severe left and more moderate right-sided foraminal narrowing allowing for motion. At C4-5, there is mild concentric disc bulge. Mild right sided facet degenerative change. Mild effacement of the anterior thecal sac and probably not significant foraminal impingement. At C5-6, there is mild concentric disc osteophyte complex with probably mild right-side facet degenerative change and mnjw-ps-cnkrujxg right and moderate left-side foraminal narrowing. There is some effacement of the anterior thecal sac, but no significant canal stenosis. At C6-7, concentric disc osteophyte complex with uncovertebral osteophyte formation bilaterally and mild right-side facet degenerative change. There is more focal disc protrusion/extrusion broad-based posteriorly, but particularly into the right 6-7 foramen such that there is severe right sided foraminal narrowing. There is also a fairly severe left-sided foraminal narrowing. There is effacement of the anterior thecal sac, but no significant canal stenosis. At C7-T1, there is moderate facet degenerative change worse on the right. There is no canal stenosis. There is no significant foraminal impingement. IMPRESSION 1. Motion limited study. 2. There is mild canal stenosis at the level of C3-4. This is not associated with cord signal abnormality at this level. There is a tiny linear focus of signal abnormality in the cord at the level of C4-5, which could simply be a tiny prominent central canal which is of no further significance clinically. It is possible this is a tiny remote manifestation of a cord contusion. It is not associated with mass effect or enhancement. Otherwise, cord signal intensity is normal. 3. There is multilevel foraminal impingement some of which is severe. Most severe impingement appears to be on the right side at C6-7 where focal disc material fills the foramen. Please refer to the pfhoz-pj-pyner description of foraminal impingement and correlate with radicular distribution. STAT * RESULT 1. [facility] A Service of [facility] RADIOLOGY TEXT RESULTS PATIENT: DEVONTE PITT LOCATION: A 304-01 : 63 UNIT #: [id number] AGE: [address]: PRANEETH JACKSON V SEX: M ORDER DR: Dictated by... Radha Serrano M.D. THIS IS AN ELECTRONICALLY VERIFIED REPORT Radha Serrano M.D. at 04/20/2017 9:33 AM GRICEL/sunita TD: 04/20/2017 08:01 JOB #: [id number] MRI CENTER REPORT Page 1 of 1 COPY
--- NOTE | ~2017-04-17 | MR165 ---
[facility] A Service of [facility] RADIOLOGY TEXT RESULTS PATIENT: DEVONTE PITT LOCATION: [facility] 304-01 : 63 UNIT #: [id number] AGE: [address]: PRANEETH JACKSON V SEX: M ORDER DR: [id number] [place] [id number] [facility]. [place], [place] [address] [id number] I MR#: [id number] Acc #: [id number] NAME: DEVONTE PITT : 1965 SEX: M STUDY DATE/TIME: 04/19/2017 21:51 UNIT: [address] ROOM: [facility] STUDY DESCRIPTION: MR Shoulder Wo Contrast Rt Attending Physician: Praneeth Jackson M.D. Ordering Physician: Physician Non-Staff Primary Care Physician: Andrei Pinto M.D. MRI CENTER REPORT This report is preliminary unless electronic signature is present. EXAM Right shoulder MRI without contrast 04/19/2017 HISTORY 51-year-old male with right shoulder pain and limited range of motion for 4 days. No specific injury. COMPARISON Right shoulder x-rays 04/19/2017 TECHNIQUE Routine unenhanced multiplanar, multisequence high field MR imaging of the right shoulder was performed. FINDINGS There is adjp-tj-aplvgzsj supraspinatus and infraspinatus tendinopathy. No evidence of tear. Teres minor and subscapularis tendons are intact. Long biceps tendon is intact and well positioned in the bicipital groove. Mild superior labral degeneration. No evidence of a displaced labral tear. Glenoid articular cartilage is intact. There is sls-zs-clkadvqj grade chondromalacia in inferior humeral head. No significant glenohumeral effusion. Mild degenerative change of the acromioclavicular joint. No subacromial spur. No significant supraspinatus outlet impingement. No inflammation of subacromial/subdeltoid bursa. Bone marrow signal is within expected limits. Visualized musculature is unremarkable. IMPRESSION [facility] A Service of [facility] RADIOLOGY TEXT RESULTS PATIENT: DEVONTE PITT LOCATION: C3A 304-01 : [birth year] UNIT #: [id number] AGE: [address]: PRANEETH JACKSON V SEX: M ORDER DR: 1. Ftth-ju-gzeasgra supraspinatus and infraspinatus tendinopathy. No evidence of a rotator cuff tear. Number mild superior labral degeneration. No evidence of a displaced labral tear. 2. Qbf-po-sczdbvmo grade chondromalacia inferior humeral head. 3. Mild acromioclavicular joint arthrosis. Preliminary wet read provided by Dr. Tony Dee at 0026 hour 04/20/2017. Dictated by... Willy Steele M.D. THIS IS AN ELECTRONICALLY VERIFIED REPORT Willy Steele M.D. at 04/23/2017 1:17 PM Colby TD: 04/20/2017 10:11 JOB #: [id number] MRI CENTER REPORT Page 1 of 1 COPY
--- NOTE | ~2017-04-17 | HP ---
Unit #: [id number] #: [id number] Patient: DEVONTE PITT [id number] [address] [place], [place] [address] [id number] I MR#: [id number] NAME: DEVONTE PITT ROOM: 304 Age: 51 Sex: M Admission Date: 04/17/2017 : 1965 Attending Physician: Elva Johns M.D. Primary Care Physician: Andrei Pinto M.D. HISTORY AND PHYSICAL CHIEF COMPLAINT Unable to move arms, shoulders and neck with pain. HISTORY OF PRESENT ILLNESS The patient is a 51-year-old male with past medical history of coronary artery disease, CHF, hypertension, gout, GERD, who presented to the emergency department for evaluation of the above. The patient states that he was in his usual state of health until the day prior to admission when he developed pain in his neck and arms. He states that he is unable to move his arms due to pain. The pain is worse in the left upper extremity. He denies any similar pain. No history of trauma. Of note, the patient did smoke cocaine within the past couple of days. He states that he has had nausea/vomiting within the past 24 hours. He denies any chest pain. No cough or cold symptoms. In the emergency department an MRI of the cervical spine was done but limited by motion artifact. Urinalysis showed findings concerning for urinary tract infection. Laboratory notable for sodium of 2.7, potassium is 1.3. Urine tox screen positive for cocaine and marijuana. He was given 4 mg of morphine, 4 mg of Zofran, 1 g of Rocephin as well as 2 g of magnesium and a total of 60 mEq of potassium. He is being admitted to [facility] for evaluation and further treatment. PAST MEDICAL HISTORY 1. Admission to [facility] March 15-2016 for acute kidney injury and dizziness. 2. Coronary artery disease. I do not see a cardiac catheterization in [facility]. 3. Congestive heart failure. The patient had a Cardiolite stress test on October 17, 2016 that showed an ejection fraction of 20%. 4. Hypertension. 5. Gout. 6. GERD. PAST SURGICAL HISTORY 1. Back surgery. 2. Appendectomy. SOCIAL HISTORY The patient denies tobacco or alcohol use. He reports smoking cocaine. FAMILY HISTORY Unit #: [id number] #: [id number] Patient: DEVONTE PITT Family history is notable for his mother having congestive heart failure and hypertension. ALLERGIES No known allergies. HOME MEDICATIONS Include lisinopril, "gout medication", aspirin. Home medications will need to be reviewed and verified. REVIEW OF SYSTEMS A complete review of systems is negative except as indicated in the HPI. DIAGNOSTIC STUDIES CARDIOVASCULAR: EKG shows sinus tachycardia with a rate of 110 beats per minute. IMAGING: Chest x-ray shows nothing acute. MRI of the cervical spine is limited by motion artifact. LABORATORY: CPK is 74. Complete blood count is essentially normal. INR is 1. Comprehensive metabolic panel notable for potassium of 2.7, chloride 98, glucose 120, AST is 50, alkaline phosphatase 103. Urinalysis notable for 1+ leukocyte esterase, 2+ protein, 100 glucose, 2+ blood, 0 to 2 red blood cells, 25 to 50 white blood cells, negative for bacteria. Urine tox screen positive for cocaine and marijuana. Troponin is less than 0.05. Magnesium is 1.3. PHYSICAL EXAMINATION VITAL SIGNS: Temperature is 98.3. Pulse 108. Respirations 18. Blood pressure 149/101. Oxygen saturation 98% on room air. GENERAL: The patient is an -[place] male who is sleeping but wakes to voice. HEENT: The head is atraumatic. Mucous membranes are moist. NECK: Neck is supple. Trachea is midline. CARDIOVASCULAR: Regular rate and rhythm. LUNGS: Lungs are clear to auscultation bilaterally with no increased work of breathing. ABDOMEN: Abdomen is soft, nontender, with bowel sounds present in all four quadrants. EXTREMITIES: There is no pedal edema. Lower extremities are nontender. NEUROLOGIC: The patient is oriented x3. He follows commands. PSYCHIATRIC: Mood and affect are normal. The patient is cooperative. SKIN: Skin of examined areas is warm and dry. MUSCULOSKELETAL: The patient is tender to palpation in the posterior neck and shoulder area as well as palpation of the right shoulder. He does have decreased range of motion involving the upper extremities secondary to pain. Public Health Veterinarian strength is normal and symmetric. ASSESSMENT The patient is a 51-year-old male with: 1. Bilateral upper extremity pain/weakness. The patient does have electrolyte abnormalities as well as recent cocaine use. 2. Hypokalemia. The patient received a total of 60 mEq of potassium in the emergency department. 3. Hypomagnesemia. The patient received 2 g of magnesium in the emergency department. Unit #: [id number] #: [id number] Patient: DEVONTE PITT 4. Cocaine abuse. 5. Coronary artery disease. 6. Congestive heart failure with an ejection fraction of 20%. 7. Hypertension. 8. Gout. 9. Gastroesophageal reflux disease. 10. Urinary tract infection. The patient received Rocephin in the emergency department. PLAN 1. Admit for observation to intermediate level. 2. Two gram sodium, 1800 mL fluid restricted, heart-healthy diet as tolerated. 3. PT/OT to evaluate and treat. 4. Neuro checks. 5. Followup result of head CT. 6. Fall precautions. 7. Potassium and magnesium protocol. 8. transitions manager rn and social work consult regarding cocaine use. 9. Serial cardiac enzymes. 10. P.r.n. Tylenol. 11. Urine culture and sensitivity on urine in the lab. 12. Rocephin 1 g IV daily pending results of urine culture. 13. P.r.n. hydralazine. 14. Repeat labs in the morning including magnesium. 15. SCDs for DVT prophylaxis. 16. Additional workup and consultants based on above. Dictated by Elva Johns M.D. HEIDI/nivia TD: 04/17/2017 16:00 JOB #: [id number] HISTORY AND PHYSICAL Page 1 of 1 X Elva Johns MD X HISTORY AND PHYSICAL
--- NOTE | ~2017-04-17 | EKG ---
PATIENT: DEVONTE PITT UNIT #: [id number] Ventricular Rate: 110 BPM Atrial Rate: 110 BPM P-R Interval: 140 ms QRS Duration: 90 ms Q-T Interval: 394 ms QTC Calculation(Bezet): 533 ms P Cornwall: 69 degrees Calculated R Cornwall: 3 degrees Calculated T Cornwall: -72 degrees Diagnosis Line: Sinus tachycardia Diagnosis Line: Possible Left atrial enlargement Diagnosis Line: Left ventricular hypertrophy with repolarization Diagnosis Line: abnormality Diagnosis Line: Prolonged QT Diagnosis Line: Abnormal ECG Diagnosis Line: When compared with ECG of 17-APR-2017 01:31, Diagnosis Line: (unconfirmed) Diagnosis Line: No significant change was found Diagnosis Line: Confirmed by PAULINE HARPER MD ([id number]) on Diagnosis Line: 04/18/2017 8:28:02 AM INTERPRETING MD: LEROY POLO
--- NOTE | ~2017-04-17 | CO ---
Unit #: [id number] #: [id number] Patient: DEVONTE PITT [id number] [facility] [address]. [place], [place] [address] [id number] I MR#: [id number] NAME: DEVONTE PITT ROOM: 304 Age: 51 Sex: M Admission Date: 04/17/2017 : 1965 Attending Physician: Vipin Taylor M.D. Primary Care Physician: Andrei Pinto M.D. Consultation Date: 04/19/2017 CONSULTATION REPORT JOB NOTE: VERIFY CONSULTING DOCTOR. PRIMARY CARE PHYSICIAN Dr. Andrei Pinto. REASON FOR CONSULTATION Remote lacunar infarction. PATIENT IDENTIFICATION This is a 51-year-old, male, evaluated in room 304 at [facility]. SOURCE OF INFORMATION Obtained from the patient as well as medical record. HISTORY OF PRESENT ILLNESS This is a 51-year-old, left-handed male with a past medical history of CAD, CHF, hypertension, gout, and GERD, who presents to [facility] with bilateral upper extremity weakness, shoulder and neck pain, nontraumatic. He had a CT of the head in the ER that was negative for any acute findings, but does show remote appearing lacunar infarct in the left caudate head, new since 2011 exam. He tells me that he was in his usual state of health until the day of admission. He states that he was not feeling well and developed pain in his neck and shoulders, more so on the right than the left. He began to develop muscle pain and weakness to the point where he could not lift his arms. He essentially could not use his right arm at all. He was admitted for further workup and evaluation. He denies fall or trauma or any prior history of head or neck trauma or any prior similar symptoms. He denies associated leg weakness or any facial weakness or any cranial nerve abnormalities. His workup in the ER was remarkable for positive urine tox screen for cocaine and marijuana. He does report that he has had some nausea and vomiting in the past day prior to admission. He also underwent an MRI of the cervical spine that was severely limited by motion artifact. He had a urinalysis that showed findings concerning for UTI. He was also hypokalemic with a potassium of 2.7. CPK was 74, his white blood cell count was 9.9, hemoglobin 15.9, hematocrit 48.1, and platelet count 244. His PT was 11.3, INR 1, PTT 28.5. Repeat troponin was less than 0.05 x 3. His fourth troponin was 0.06. Neurology is asked to further evaluate regarding his abnormal CT findings. Again, it shows a remote lacunar infarct, new since exam in 2010, but is chronic appearing. It is incidentally symptomatic. The patient has no reported symptoms consistent with the infarct and again is noncontributory to his presenting condition. Of concern is his upper extremity weakness and shoulder pain. It appears Unit #: [id number] #: [id number] Patient: DEVONTE PITT to be more proximal than distal and worse on the right compared to the left. Dr. Jennings did review his MRI of the C-spine that was very motion limited. It is concerning for significant cord compression. The patient has shown some improvement, but is still quite weak proximally on the right side with passive range of motion pain in the right shoulder. He denies any exacerbating or alleviating factors or any other associated symptoms. Again, he denies any fall or trauma. PAST MEDICAL HISTORY 1. Admission to [facility] on 03/15/2017 through 03/17/2017 for acute kidney injury and dizziness. 2. CAD. 3. CHF. The patient had Cardiolite stress test on 10/17/2016, which showed an ejection fraction of 20%. 4. Hypertension. 5. GERD. 6. Back surgery. 7. Appendectomy. 8. His cardiac catheterization from 2017 showed left main normal, mid LAD 60% stenosis, mid left circumflex 60% stenosis and RCA small RV branch with ostium 90% stenosis, RPDA diffuse 90% stenosis, not suitable for PCI and he was recommended for medical management. 9. His 2D echocardiogram; as per Cardiology consultation reports, he has an echo from 10/16/2016 that showed an EF of 20% to 25%, severe hypokinesis of the left ventricle, diqn-ah-zblberli LVH, pseudonormalization and possible small protruding thrombus attached to the left apex. 10. Chronic systolic and diastolic CHF. ALLERGIES No known drug allergies. HOME MEDICATIONS Include Coreg, Protonix, Norvasc, hydralazine. FAMILY HISTORY Positive for CAD and myocardial infarction. His mother of myocardial infarction at the age of 56. His brother recently just in the last couple of months at the age of 54 from myocardial infarction. SOCIAL HISTORY The patient denies tobacco use or alcohol use. He admits to using marijuana, but denies cocaine use. However, his urinalysis is positive for marijuana and cocaine. He states that he and his friends have parties this time of the year and that marijuana is used, but he states he did not have knowledge of ingesting cocaine. REVIEW OF SYSTEMS 14-point review of systems was done. Pertinent positives are as discussed above otherwise negative. PHYSICAL EXAMINATION VITAL SIGNS: Temperature 98.2, pulse 78, respirations 16, blood pressure 150/99, oxygen saturation 98%, height 6 feet 1 inch, weight 182 pounds, BMI 21. NEUROLOGIC: The patient is awake, alert, and oriented to person, place, and time as well as events. No right or left confusion. No finger agnosia. No aphasia, dysarthria, or apraxia. Cranial nerve exam Unit #: [id number] #: [id number] Patient: DEVONTE PITT demonstrates full partida of vision. Eyes are conjugate without ptosis or nystagmus. Extraocular movements are intact. Sensation of the face and scalp is intact. Strength of the muscles of facial expression is intact. Hearing is intact to finger rub and conversation. Tongue is midline. Uvula is midline. Palate elevation is normal. Head turning unremarkable. Shoulder shrug is difficult on the right side. Neck is supple. Motor exam, he demonstrates normal bulk and tone. Strength is equal 5/5 in the lower extremities bilaterally. In the upper extremities, on the left side, he can lift against gravity, but has some difficulty with resistance proximally. He has no shoulder pain. On the right upper extremity, he can lift approximately, but cannot lift much in the way of even against gravity proximally and certainly not against resistance. His shoulder shrug is difficult. He complains of right shoulder pain with passive range of motion. His photographic aide strength is equal. Sensory exam is intact and gait normal. Romberg deferred. Reflexes 1/4 on the left, diminished somewhat in the right upper extremity, but still palpable. Coordination otherwise unremarkable. DIAGNOSTIC STUDIES LABORATORY RESULTS: Please see above. IMAGING STUDIES: MRI of the C-spine per Radiology report shows significant motion artifact in multiple sequences despite repeat and is almost nondiagnostic. No acute display of significant fracture or subluxation noted. Degenerative changes are at multiple levels of the cervical spine, particularly at C3-4, C5-6 and C6-7 with likely canal stenosis and cord displacement, particularly at C3-4, there is probable some neural foraminal narrowing noted, but evaluation is limited due to motion based on sagittal T2 sequence series 3 relatively. The cord signal is probably within normal limits. With significant motion, other sequences limits its evaluation as well. Dr. Jennings did review imaging personally. IMPRESSION 1. Bilateral upper extremity weakness, proximally greater than distal, right greater than the left with right passive range of motion shoulder pain, nontraumatic. 2. Incidental remote small vessel lacunar infarct. Continue aspirin. Recommended adding Lipitor 40 mg p.o. daily, though may consider starting after the patient's weakness has resolved. 3. Coronary artery disease and congestive heart failure. Ejection fraction of 25% to 30%. Cardiology is following. 4. Indeterminate troponin. Cardiology is following. 5. Cocaine abuse. 6. Marijuana abuse. 7. Cervical degenerative disk disease. PLAN Infarct is remote appearing and incidental, not contributing to the patient's presenting condition, but regardless he does have an infarct, recommend continuing aspirin. Could consider outpatient evaluation, but since the patient remains for evaluation of extremity weakness and also given the extensive cardiac history, recommend continuing with inpatient evaluation and we will request MRI of the brain, MRA of the head and neck, also ask that MRI of the C-spine be repeated and we will trial the patient on a little bit of Ativan to help with MRI. He is on aspirin, recommend Unit #: [id number] #: [id number] Patient: DEVONTE PITT continuing and he needs to quit his cocaine use. Regarding his bilateral upper extremity weakness, which is greater proximally than distally. C-spine is abnormal, but significant motion artifact limits evaluation, so we recommend repeating that and also recommend evaluation of the right shoulder given passive range of motion pain. Dr. Jennings discussed with the patient regarding cessation of drug use. Further recommendations pending workup and further clinical course. Dr. Jennings has requested a C-spine MRI, brain MRI, MRA of the head and neck, hemoglobin A1c, B12, folate, and x-ray of the right shoulder. Lacunar infarct in the caudate head is typically small-vessel. We will discuss with Dr. Jennings regarding history of echocardiogram results in the past and review current echocardiogram results with Dr. Jennings regarding a relation to his stroke risk. Further recommendations to be made pending workup and further clinical course. We thank you very much for allowing us to assist in the care of this patient. Dictated by... Laura Soliman A.P.R.N. for Caio Kimbrough/chris TD: 04/20/2017 03:52 JOB #: [id number] CONSULTATION REPORT Page 1 of 1 X Laura Soliman HAM FACER X CONSULTATION REPORT
--- NOTE | ~2017-04-17 | MR18 ---
[facility] A Service of [facility] RADIOLOGY TEXT RESULTS PATIENT: DEVONTE PITT LOCATION: [facility] 304- : 63 UNIT #: [id number] AGE: [address]: PRANEETH JACKSON V SEX: M ORDER DR: [id number] [facility] [address]. [place], [place] [address] [id number] I MR#: [id number] Acc #: [id number] NAME: DEVONTE PITT : 1965 SEX: M STUDY DATE/TIME: 04/19/2017 22:17 UNIT: C3A PCU ROOM: [facility] STUDY DESCRIPTION: MR Brain Wo Contrast Attending Physician: Praneeth Jackson M.D. Ordering Physician: Mark Jennings M.D. Primary Care Physician: Andrei Pinto M.D. MRI CENTER REPORT This report is preliminary unless electronic signature is present. EXAM MRI brain without contrast INDICATION Bilateral upper arm weakness for the past 4 days with tingling and numbness in both hands for the past several months. PROCEDURE Multiplanar, multisequence MR imaging of the brain without the administration of contrast. COMPARISON Head CT 04/17/2017. FINDINGS Study is mildly motion degraded. Diffusion weighted imaging shows no evidence for acute or early subacute large territory infarct. There is no hemorrhage, abnormal mass effect, extraaxial collection or hydrocephalus. Mild sequela of chronic small vessel ischemic change. There is a small old lacunar infarct in the left caudate head. Flow voids in the major intracranial vessels are intact. Paranasal sinus mucosal thickening. IMPRESSION 1. No acute findings. 2. Old small left caudate head lacunar infarct with mild sequela of chronic small vessel ischemic change. 3. Paranasal sinus mucosal thickening. Dictated by... Felipe Dee M.D. THIS IS AN ELECTRONICALLY VERIFIED REPORT [facility] A Service of [facility] & [facility] RADIOLOGY TEXT RESULTS PATIENT: DEVONTE PITT LOCATION: [facility] 304- : 61 UNIT #: [id number] AGE: [address]: PRANEETH JACKSON V SEX: M ORDER DR: Felipe Dee M.D. at 04/24/2017 8:31 AM KAREN/abdulaziz TD: 04/20/2017 06:55 JOB #: [id number] MRI CENTER REPORT Page 1 of 1 COPY
--- NOTE | ~2017-04-17 | MR32 ---
[facility] A Service of [facility] & [facility] RADIOLOGY TEXT RESULTS PATIENT: DEVONTE PITT LOCATION: C3A 304-01 : 61 UNIT #: [id number] AGE: [address]: GARRY JACKSONUJ V SEX: M ORDER DR: [id number] [facility] [address] [place], [place] [address] [id number] I MR#: [id number] Acc #: [id number] NAME: DEVONTE PITT : 1965 SEX: M STUDY DATE/TIME: 04/17/2017 10:08 UNIT: A [facility] ROOM: 304 STUDY DESCRIPTION: MR Cervical Wo Contrast Attending Physician: Elva Johns M.D. Ordering Physician: Terry Mukherjee D.O. Primary Care Physician: Andrei Pinto M.D. MRI CENTER REPORT This report is preliminary unless electronic signature is present. EXAM MRI of the cervical spine without contrast, dated 04/17/2017. COMPARISON None. HISTORY Unable to move arms, shoulders and neck without pain. It started at 11 p.m. on 04/16/2017. Bilateral arm pain. TECHNIQUE Multisequence, multiplanar imaging of the cervical spine was obtained without contrast. Multiple repeats were performed and still the study has significant motion artifact making it of very limited diagnostic value. Axial images are almost nondiagnostic. FINDINGS Disc osteophyte complex are noted at multiple levels, relatively worse at C3-4, C5-6 and C6-7 levels. Cord demonstrates relatively normal caliber and signal with slight posterior displacement at the level of C3-4. Increased T2 signal is noted within the mid julee likely relating to old insult. C2-3: Mild disc bulge with probably left facet hypertrophic change. No significant canal stenosis or neural foraminal narrowing. C3-4: Disc osteophyte complex with superimposed yzlyr-oz-uetx subarticular moderate broad-based protrusion with suspicious central extruded component, fxswpxpg-uc-wtounb canal stenosis, cord displacement. Mild left neural foraminal narrowing cannot be excluded. C4-5: Disc osteophyte complex which is asymmetrically prominent in the left subarticular to foraminal region with likely left uncinate spur. [facility] A Service of [facility] & [facility] RADIOLOGY TEXT RESULTS PATIENT: DEVONTE PITT LOCATION: C3A PC 304-01 : 61 UNIT #: [id number] AGE: [address]: PRANEETH JACKSON V SEX: M ORDER DR: Borderline size to mild canal stenosis. The axial T2 series 7 does not demonstrate any significant neural foraminal narrowing. C5-6: Disc osteophyte complex with agqrj-sz-kpaa subarticular broad-based disc protrusion and bilateral uncinate spurs, particularly in the right. There is probably mild canal stenosis and mild to moderate left neural foraminal narrowing. C6-7: Disc osteophyte complex with mild canal stenosis and probably bilateral neural foraminal narrowing. C7-T1: Mild degenerative disc signal loss and bilateral mild facet changes but otherwise unremarkable. IMPRESSION 1. Significant motion artifact is noted in the multiple sequences despite repeats. It is almost nondiagnostic study. 2. No acute displaced significant fracture or subluxation is noted. 3. Degenerative changes are at multiple levels of the cervical spine particularly at C3-4, C5-6 and C6-7 with likely canal stenosis and cord displacement particularly at C3-4 level. There is probably some neural foraminal narrowing noted but its evaluation is limited. 4. Based on this sagittal T2 sequence, series 3, relatively the cord signal is probably within normal limits. Significant motion in the other sequences limits its evaluation too. Dictated by... Arleen Sullivan M.D. THIS IS AN ELECTRONICALLY VERIFIED REPORT Arleen Sullivan M.D. at 04/18/2017 2:15 PM CPR/louann TD: 04/17/2017 20:29 JOB #: [id number] MRI CENTER REPORT Page 1 of 1 COPY
--- NOTE | ~2017-04-17 | CT71 ---
[facility] A Service [facility] RADIOLOGY TEXT RESULTS PATIENT: DEVONTE PITT LOCATION: [facility] 304-01 : [birth year] UNIT #: [id number] AGE: [address]: GARRY JACKSONUJ V SEX: M ORDER DR: [id number] [facility] [address] [place], [place] [address] [id number] MR#: [id number] Acc #: [id number] NAME: DEVONTE PITT : 1965 SEX: M STUDY DATE/TIME: 04/17/2017 15:27 UNIT: A U ROOM: [facility] STUDY DESCRIPTION: CT Head Wo Contrast Attending Physician: Elva Johns M.D. Ordering Physician: Louie Nieves M.D. Primary Care Physician: Andrei Pinto M.D. MEDICAL IMAGING REPORT This report is preliminary unless electronic signature is present EXAM CT head without contrast, 04/17/2017 HISTORY 51-year-old male with headache for 2 days and bilateral upper extremity weakness. COMPARISON CT head 04/15/2011. TECHNIQUE Routine unenhanced axial images performed through the brain. This CT exam was performed with one or more of the following radiation dose reduction techniques: Automatic exposure control, adjustment of mA and/or kV according to patient size, and iterative reconstruction. FINDINGS No hemorrhage, acute infarction, mass lesion, or abnormal extraaxial fluid collection. No midline shift or focal mass effect. Ventricular system normal in size and configuration. Remote appearing lacunar infarct in the left caudate head. This is new since the comparison study of 04/15/2011. No acute bony abnormality. Extensive mucosal thickening throughout the visualized paranasal sinuses. Visualized mastoid air cells are clear. IMPRESSION 1. No acute intracranial abnormality. 2. Remote appearing lacunar infarct left caudate head, which is new since the prior study of 04/15/2011. 3. Extensive mucosal thickening throughout the paranasal sinuses. Dictated by... Willy Steele M.D. [facility] A Service [facility] RADIOLOGY TEXT RESULTS PATIENT: DEVONTE PITT LOCATION: [facility] 304-01 : [birth year] UNIT #: [id number] AGE: [address]: PRANEETH JACKSON V SEX: M ORDER DR: THIS IS AN ELECTRONICALLY VERIFIED REPORT Willy Steele M.D. at 04/18/2017 2:36 PM SADIA/viviane TD: 04/18/2017 00:42 JOB #: [id number] MEDICAL IMAGING REPORT Page 1 of 1 COPY
--- NOTE | ~2017-04-17 | CR230 ---
[facility] A Service of [facility] RADIOLOGY TEXT RESULTS PATIENT: DEVONTE PITT LOCATION: [facility] 304-01 : [birth year] UNIT #: [id number] AGE: [address]: PRANEETH JACKSON V SEX: M ORDER DR: [id number] [facility] [address]. [place], [place] [address] [id number] MR#: [id number] Acc #: [id number] NAME: DEVONTE PITT : 1965 SEX: M STUDY DATE/TIME: 04/19/2017 13:39 UNIT: A [facility] ROOM: [facility] STUDY DESCRIPTION: CR Shoulder Min 2 View Rt Attending Physician: Praneeth Jackson M.D. Ordering Physician: Mark Jennings M.D. Primary Care Physician: Andrei Pinto M.D. MEDICAL IMAGING REPORT This report is preliminary unless electronic signature is present EXAM Right shoulder, 2 views. COMPARISON None. INDICATIONS 51-year-old male with right shoulder pain for 2 days. No known injury. FINDINGS Mild multilevel degenerative facet disease of the sme-vb-emvyu cervical spine on the right. Bones are anatomically aligned. No evidence of acute fracture or significant degenerative change of the right shoulder. IMPRESSION 1. Normal radiographic evaluation of the right shoulder. 2. Mild multilevel degenerative facet disease of the gvz-gf-yrpij right cervical spine. Dictated by... Bradley Lacey M.D. THIS IS AN ELECTRONICALLY VERIFIED REPORT Bradley Lacey M.D. at 04/24/2017 11:58 AM DEVON/louann TD: 04/19/2017 20:53 JOB #: [id number] MEDICAL IMAGING REPORT Page 1 of 1 COPY
[~2017-04-17 01:23] MED LIST changes: +HYDRALAZINE HCL25 MG PO; +PANTOPRAZOLE SO40 MG PO; +ZESTRIL40 MG
[2017-04-17 05:17] LABS: URINE SOURCE CLEAN CATCH
[2017-04-17 05:21] LABS: BASOPHIL% 0.4 % (0-2.5); EOSINOPHIL# 0.1 X10e3 (0-0.7); EOSINOPHIL% 0.7 % (0.0-7.0); HEMATOCRIT 48.1 % (38.0-50.0); HEMOGLOBIN 15.9 gm/dL (13.0-16.0); LYMPHOCYTE# 0.9 X10e3 (1.0-3.5); LYMPHOCYTE% 8.8 % (17.0-45.0); MEAN CELL VOLUME 91.8 FL (83-96); MEAN CORPUSCULAR HEMOGLOBIN 30.4 PG (28-34); MEAN CORPUSCULAR HGB CONC 33.1 g/dL (30-36); MEAN PLATELET VOLUME 8.2 FL (6.5-11.5); MONOCYTE# 0.9 X10e3 (0-1.0); MONOCYTE% 9.2 % (3.0-12.0); NEUTROPHIL% 80.9 % (40-75); PLATELET COUNT 244 X10e3 (140-420); RED BLOOD COUNT 5.24 X10e (3.90-5.60); RED CELL DISTRIBUTION WIDTH 14.9 % (11.0-15.5); WHITE BLOOD COUNT 9.9 X10e3 (4.0-10.5)
[2017-04-17 05:29] LABS: URINE APPEARANCE CLOUDY; URINE BILIRUBIN NEG (NEG); URINE BLOOD 2+ (NEG); URINE COLOR YELLOW; URINE GLUCOSE 100 MG/DL (NEG); URINE KETONE NEG (NEG); URINE LEUKOCYTE ESTERASE 1+ (NEG); URINE NITRATE NEG (NEG); URINE PH 5.5 (5-8); URINE PROTEIN 2+ (NEG); URINE SPECIFIC GRAVITY 1.026 (1.003-1.035)
[2017-04-17 05:38] LABS: DIFF IND NO
[2017-04-17 05:41] LABS: CULTURE INDICATED? YES; URBCS1 AUWI 0-2 /[HPF] (0-2); URINE BACTERIA AUWI NEG (NEGATIVE); URINE SQUAMOUS EPITHELIAL CELL OCC /[HPF]
[2017-04-17 05:45] LABS: PARTIAL THROMBOPLASTIN TIME 28.5 SECONDS (23.5-31.3); PROTHROMBIN TIME (PATIENT) 11.3 SECONDS (10.0-11.7)
[2017-04-17 05:49] LABS: URINE MUCUS PRESENT
[2017-04-17 05:50] LABS: UWBCS1 AUWI 25-50 (0-5)
[2017-04-17 05:51] LABS: ALBUMIN SERUM 3.9 g/dL (3.5-5.0); BILIRUBIN, DIRECT 0.1 mg/dL (0.0-0.2); BILIRUBIN,INDIRECT 0.7 mg/dL (0.0-0.9); BILIRUBIN,TOTAL 0.8 mg/dL (0.2-2.0); BUN/CREATININE RATIO 10.76; CALCIUM SERUM 9.1 mg/dL (8.4-10.2); CREATININE SERUM 1.3 mg/dL (0.6-1.4); GLOM FILT RATE Estimated 72.2 mL/min (>60); PROTEIN TOTAL SERUM 8.5 g/dL (6.0-8.3)
[2017-04-17 05:52] LABS: POTASSIUM 2.7 mmol/L (3.5-5.1)
[2017-04-17 05:52] LABS: URINE GRANULAR CAST 0-2 /[HPF]
[2017-04-17 06:26] LABS: AMPHETAMINE NEG (NEG); BARBITURATES NEG (NEG); BENZODIAZEPINES NEG (NEG); COCAINE POS (NEG); MARIJUANA POS (NEG); OPIATES NEG (NEG); TRICYCLIC ANTIDEPRESSANTS NEG (NEG); U METHADONE NEG (NEG)
[2017-04-17 06:31] LABS: POC - CKMB 1.4 ng/mL (0.0-7.9); POC - TROPONIN <0.05 ng/mL (<=0.05)
[2017-04-17 14:55] LABS: POC - CKMB <1.0 ng/mL (0.0-7.9); POC - TROPONIN <0.05 ng/mL (<=0.05)
[2017-04-17 14:59] LABS: %MB 1.6 % (0.0-4.0); MB 1.3 ng/ml
[2017-04-17 15:41] LABS: BUN/CREATININE RATIO 9.23; CREATININE SERUM 1.3 mg/dL (0.6-1.4); GLOM FILT RATE Estimated 72.2 mL/min (>60); POTASSIUM 3.1 mmol/L (3.5-5.1)
[2017-04-17 21:22] LABS: MB 0.9 ng/ml
[2017-04-18 05:14] LABS: HEMATOCRIT 44.2 % (38.0-50.0); HEMOGLOBIN 14.7 gm/dL (13.0-16.0); MEAN CELL VOLUME 91.4 FL (83-96); MEAN CORPUSCULAR HEMOGLOBIN 30.5 PG (28-34); MEAN CORPUSCULAR HGB CONC 33.4 g/dL (30-36); MEAN PLATELET VOLUME 8.3 FL (6.5-11.5); RED BLOOD COUNT 4.83 X10e (3.90-5.60); WHITE BLOOD COUNT 9.6 X10e3 (4.0-10.5)
[2017-04-18 05:53] LABS: ALBUMIN SERUM 3.4 g/dL (3.5-5.0); BILIRUBIN,TOTAL 0.8 mg/dL (0.2-2.0); CALCIUM SERUM 8.8 mg/dL (8.4-10.2); GLOM FILT RATE Estimated 99.2 mL/min (>60); MAGNESIUM 1.6 mg/dL (1.6-3.0); POTASSIUM 3.3 mmol/L (3.5-5.1); PROTEIN TOTAL SERUM 7.9 g/dL (6.0-8.3)
[2017-04-18 06:10] LABS: %MB 1.2 % (0.0-4.0); MB 1.1 ng/ml
[2017-04-18 15:54] LABS: THYROID STIMULATING HORMONE 0.69 uIU/ml (0.34-5.60)
[2017-04-18 16:01] LABS: FREE THYROXIN (T4) 1.07 ng/dL (0.58-1.64)
[2017-04-19 07:50] LABS: BUN/CREATININE RATIO 13.33; CALCIUM SERUM 8.9 mg/dL (8.4-10.2); CREATININE SERUM 0.9 mg/dL (0.6-1.4); GLOM FILT RATE Estimated 112.6 mL/min (>60); MAGNESIUM 1.5 mg/dL (1.6-3.0); PHOSPHOROUS 3.6 mg/dL (2.5-4.6); POTASSIUM 3.2 mmol/L (3.5-5.1)
[2017-04-19 08:37] LABS: POC - CKMB 1.8 ng/mL (0.0-7.9); POC - TROPONIN 0.05 ng/mL (<=0.05)
[2017-04-19 13:41] LABS: FOLATE (FOLIC ACID) 7.7 ng/mL (>5.8)
[2017-04-20 07:24] LABS: CALCIUM SERUM 9.3 mg/dL (8.4-10.2); GLOM FILT RATE Estimated 99.2 mL/min (>60); MAGNESIUM 1.6 mg/dL (1.6-3.0); POTASSIUM 3.5 mmol/L (3.5-5.1)
[2017-04-20] MEDS ORDERED: ENTRESTO 24 MG1 EACH (12:50)
[2017-04-20] MEDS ORDERED: AMLODIPINE BESYL5 MG PO (12:51)
[2017-04-20] MEDS ORDERED: LIPITOR40 MG PO (12:52)
[2017-04-20] MEDS ORDERED: FUROSEMIDE40 MG PO (12:52)
[2017-04-20] MEDS ORDERED: ASPIRIN ENTERI325 M1 PO (12:53)
[2017-04-20] MEDS ORDERED: ALDACTONE25 MG PO (12:54)
[2017-04-20] MEDS ORDERED: K-DUR10 MEQ PO (12:55)
[2017-04-20] MEDS ORDERED: MAG-OXIDE400 MG PO (12:56)
[2017-04-26 16:35] LABS: ANA SCREEN Negative (Negative)
== END 2017-04-20 14:21 | disposition home or self-care (01) | DRG 557 ==
LOC: CED 01:23 → C3A PCU 13:35 → CED 13:35 → CEDOF 13:35 → CED 14:05 → CEDOF 14:05 → C3A PCU 15:44
PROVIDERS: Emergency Medicine; Family Medicine; Internal Medicine; Psychiatry & Neurology Neurology
PROC: B24BYZZ Ultrasonography of Heart with Aorta using Other Contrast (ICD-10-PCS; 2017-04-18)
PROC: B338ZZZ Magnetic Resonance Imaging (MRI) of Bilateral Internal Carotid Arteries (ICD-10-PCS; principal; 2017-04-19)
PROC: B33GZZZ Magnetic Resonance Imaging (MRI) of Bilateral Vertebral Arteries (ICD-10-PCS; 2017-04-19)
DX: M75.91 Shoulder lesion, unspecified, right shoulder (principal); I50.43 Acute on chronic combined systolic (congestive) and diastolic (congestive) heart failure; E83.42 Hypomagnesemia; N12 Tubulo-interstitial nephritis, not specified as acute or chronic; I42.7 Cardiomyopathy due to drug and external agent; N39.0 Urinary tract infection, site not specified; M60.9 Myositis, unspecified; E87.6 Hypokalemia; F14.10 Cocaine abuse, uncomplicated; I25.10 Atherosclerotic heart disease of native coronary artery without angina pectoris; I11.0 Hypertensive heart disease with heart failure; M10.9 Gout, unspecified; K21.9 Gastro-esophageal reflux disease without esophagitis; Z82.49 Family history of ischemic heart disease and other diseases of the circulatory system; F12.10 Cannabis abuse, uncomplicated; M50.30 Other cervical disc degeneration, unspecified cervical region; T40.5X1A Poisoning by cocaine, accidental (unintentional), initial encounter; Z86.73 Personal history of transient ischemic attack (TIA), and cerebral infarction without residual deficits
CPT/HCPCS: 36415; 70450; 70544; 70547; 70551; 71010; 72141; 72156; 73030; 73221; 80048; 80053; 80061; 80076; 80307; 81003; 82550; 82553; 82607; 82746; 83036; 83735; 84100; 84132; 84439; 84443; 84484; 85025; 85027; 85610; 85652; 85730; 86038; 86039; 86140; 86200; 86430; 87040; 87086; 93005; 93306; 94760; 96361; 96365; 96366; 96367; 96375; 96376; 97110; 97162; 97166; 99284; A9577; G8978-GP; G8979-GP; G8980-GP; G8987-GO; G8988-GO; G8990-GO; G8991-GO; J0360; J0696; J1650; J1885; J2060; J2270; J2405; J3475

== ENCOUNTER 2017-06-13 13:03 | Emergency (ER) | payer OTHER ==
[~2017-06-13] VITALS: Ht 185.4 cm; Wt 74.8 kg
--- NOTE | ~2017-06-13 | CT4 ---
[facility] A Service of [facility] RADIOLOGY TEXT RESULTS PATIENT: DEVONTE PITT LOCATION: [facility] : 61 UNIT #: [id number] AGE: [address]: Delvin Hair MD SEX: M ORDER DR: [id number] [facility] [address] [place], [place] [address] [id number] MR#: [id number] Acc #: [id number] NAME: DEVONTE PITT : 1965 SEX: M STUDY DATE/TIME: 06/13/2017 14:37 UNIT: [facility] ROOM: STUDY DESCRIPTION: CT Abd and Pelv Wo Cont Attending Physician: Delvin Hair M.D. Ordering Physician: Delvin Hair M.D. Primary Care Physician: Andrei Pinto M.D. MEDICAL IMAGING REPORT This report is preliminary unless electronic signature is present EXAM CT abdomen and pelvis without contrast HISTORY Right-sided flank pain radiating to right lower quadrant since last night. COMPARISON 03/15/2017. FINDINGS Axial images performed through the abdomen and pelvis without contrast. Multiplanar reconstructed images reviewed. This CT examination was performed with one or more of the following radiation dose reduction techniques: automatic exposure control, adjustment of mA and/or kV according to patient size, and iterative reconstruction. ABDOMEN: Lung bases unremarkable. Liver and spleen unremarkable. The gallbladder contracted. Pancreas, kidneys and adrenal glands unremarkable. No definite renal stone or obstruction. No stones seen along the course of the ureters. Visualized GI tract to include the appendix normal. PELVIS: Bladder unremarkable. The prostate mildly enlarged. There is extensive seminal vesicle calcifications and arterial vascular calcifications within the pelvis. 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 Degenerative disc disease and facet arthropathy seen in the lower lumbar spine. IMPRESSION 1. No acute intraabdominal or intrapelvic pathology identified. In particular, no evidence of renal stone or obstruction. The appendix is normal. 2. L4-5, L5-S1 degenerative disc disease with multilevel spinal and [facility] A Service of [facility] RADIOLOGY TEXT RESULTS PATIENT: DEVONTE PITT [id number] [birth year] UNIT #: [id number] AGE: [address]: Delvin Hair MD SEX: M ORDER DR: foraminal stenosis. Dictated by... Herbie Luis M.D. THIS IS AN ELECTRONICALLY VERIFIED REPORT Herbie Luis M.D. at 06/14/2017 2:32 PM CAIO/abdulaziz TD: 06/14/2017 07:19 JOB #: [id number] MEDICAL IMAGING REPORT Page 1 of 1 COPY
[~2017-06-13 13:03] MED LIST changes: +ALDACTONE25 MG PO; +AMLODIPINE BESYL5 MG PO; +ASPIRIN ENTERI325 M1 PO; +ENTRESTO 24 MG1 EACH; +FUROSEMIDE40 MG PO; +K-DUR10 MEQ PO; +MAG-OXIDE400 MG PO
[2017-06-13 13:57] LABS: BASOPHIL% 0.7 % (0-2.5); EOSINOPHIL# 0.2 X10e3 (0-0.7); EOSINOPHIL% 2.4 % (0.0-7.0); HEMATOCRIT 45.2 % (38.0-50.0); HEMOGLOBIN 15.4 gm/dL (13.0-16.0); LYMPHOCYTE# 1.8 X10e3 (1.0-3.5); LYMPHOCYTE% 24.4 % (17.0-45.0); MEAN CELL VOLUME 92.2 FL (83-96); MEAN CORPUSCULAR HEMOGLOBIN 31.4 PG (28-34); MEAN CORPUSCULAR HGB CONC 34.1 g/dL (30-36); MEAN PLATELET VOLUME 7.2 FL (6.5-11.5); MONOCYTE# 0.7 X10e3 (0-1.0); NEUTROPHIL# 4.8 X10e3 (1.5-7.1); NEUTROPHIL% 63.5 % (40-75); PLATELET COUNT 311 X10e3 (140-420); RED CELL DISTRIBUTION WIDTH 16.3 % (11.0-15.5); WHITE BLOOD COUNT 7.6 X10e3 (4.0-10.5)
[2017-06-13 13:59] LABS: DIFF IND NO
[2017-06-13 14:22] LABS: ALBUMIN SERUM 3.8 g/dL (3.5-5.0); BILIRUBIN, DIRECT 0.2 mg/dL (0.0-0.2); BILIRUBIN,INDIRECT 0.7 mg/dL (0.0-0.9); BILIRUBIN,TOTAL 0.9 mg/dL (0.2-2.0); BUN/CREATININE RATIO 8.88; CREATININE SERUM 0.9 mg/dL (0.6-1.4); GLOM FILT RATE Estimated 112.6 mL/min (>60); PROTEIN TOTAL SERUM 8.2 g/dL (6.0-8.3)
[2017-06-13 14:26] LABS: POTASSIUM 2.3 mmol/L (3.5-5.1)
[2017-06-13 15:25] LABS: URINE SOURCE CLEAN CATCH
[2017-06-13 15:26] LABS: AMPHETAMINE NEG (NEG); BARBITURATES NEG (NEG); BENZODIAZEPINES NEG (NEG); COCAINE POS (NEG); MARIJUANA POS (NEG); OPIATES NEG (NEG); TRICYCLIC ANTIDEPRESSANTS NEG (NEG); U METHADONE NEG (NEG)
[2017-06-13 15:47] LABS: URINE APPEARANCE CLEAR; URINE BILIRUBIN NEG (NEG); URINE BLOOD NEG (NEG); URINE COLOR YELLOW; URINE GLUCOSE NEG (NEG); URINE KETONE NEG (NEG); URINE LEUKOCYTE ESTERASE NEG (NEG); URINE NITRATE NEG (NEG); URINE PH 6.5 (5-8); URINE PROTEIN NEG (NEG); URINE UROBILINOGEN 0.2 MG/DL (NEG)
[2017-06-13 15:58] LABS: CULTURE INDICATED? NO
== END 2017-06-13 16:30 | disposition home or self-care (01) ==
LOC: CED 13:03
PROVIDERS: Emergency Medicine
DX: R10.9 Unspecified abdominal pain (principal); F19.10 Other psychoactive substance abuse, uncomplicated; E87.6 Hypokalemia; I11.0 Hypertensive heart disease with heart failure; I50.9 Heart failure, unspecified; K21.9 Gastro-esophageal reflux disease without esophagitis; Z79.82 Long term (current) use of aspirin; Z79.899 Other long term (current) drug therapy
CPT/HCPCS: 36415; 74176; 80048; 80076; 80307; 81003; 83735; 85025; 96374; 99284; J1885